=== PATIENT | female | born 1985 | race Caucasian/White ===

== ENCOUNTER 2016-11-14 00:21 | Inpatient (IN) | payer BC ==
[2016-11-14] VITALS (43 sets, daily range): BP systolic 86–186; BP diastolic 50–110
[~2016-11-14] VITALS: Ht 162.6 cm; Wt 100.0 kg
[~2016-11-14 00:21] MED LIST: ENDOCET 5-3251 EACH PO; IBUPROFEN800 MG PO; PRENATAL VITAM1 EAC7 PO
[2016-11-14 01:59] LABS: BASOPHIL COUNT 0.1 K/uL (0-0.1); EOSINOPHIL (%) 1.5 % (0-5); EOSINOPHIL COUNT 0.2 K/uL (0-0.3); HEMATOCRIT 35.5 % (36.0-46.0); IMMATURE GRANULOCYTE (%) 1.1 % (0.0-0.7); IMMATURE GRANULOCYTE COUNT 0.2 K/uL; INSTRUMENT ABS NEUTROPHIL CT 8.3 K/uL; LYMPHOCYTE COUNT 3.7 K/uL (1.0-2.8); MCHC 33.5 G/DL (30.0-36.0); MCV 92.4 FL (83-99); MEAN PLAT.VOLUME 10.3 uM^3 (9.5-12.4); MONOCYTE (%) 6.5 % (3-12); MONOCYTE COUNT 0.9 K/uL (0-0.8); NEUTROPHIL (%) 62.4 % (45-76); NEUTROPHIL COUNT 8.3 K/uL (1.8-6.4); PLATELET COUNT 291 K/uL (156-360); RBC DIS.WIDTH-CV 14.5 % (11.8-14.6); RBC DIS.WIDTH-SD 48.7 % (39-53); RED BLOOD COUNT 3.84 M/uL (3.80-5.20); WHITE BLOOD COUNT 13.3 K/uL (4.1-10.2)
[2016-11-14] MEDS ORDERED: IBUPROFEN800 MG PO (16:19)
[2016-11-15 07:09] LABS: BASOPHIL COUNT 0.1 K/uL (0-0.1); EOSINOPHIL (%) 2.1 % (0-5); EOSINOPHIL COUNT 0.3 K/uL (0-0.3); HEMATOCRIT 32.7 % (36.0-46.0); IMMATURE GRANULOCYTE (%) 0.8 % (0.0-0.7); IMMATURE GRANULOCYTE COUNT 0.1 K/uL; INSTRUMENT ABS NEUTROPHIL CT 9.9 K/uL; LYMPHOCYTE COUNT 3.9 K/uL (1.0-2.8); MCH 31.2 PG (29.0-34.0); MCHC 33.3 G/DL (30.0-36.0); MCV 93.7 FL (83-99); MEAN PLAT.VOLUME 10.6 uM^3 (9.5-12.4); MONOCYTE (%) 6.6 % (3-12); NEUTROPHIL (%) 64.6 % (45-76); NEUTROPHIL COUNT 9.9 K/uL (1.8-6.4); PLATELET COUNT 249 K/uL (156-360); RBC DIS.WIDTH-CV 14.8 % (11.8-14.6); RBC DIS.WIDTH-SD 50.9 % (39-53); RED BLOOD COUNT 3.49 M/uL (3.80-5.20); WHITE BLOOD COUNT 15.4 K/uL (4.1-10.2)
[2016-11-15 07:53] VITALS: BP 116/78
[2016-11-15 14:50] VITALS: BP 126/65
[2016-11-15 23:42] VITALS: BP 132/74
== END 2016-11-16 12:27 | disposition home or self-care (01) | DRG 775 ==
LOC: LDRP-OP 00:21 → 2WEST 00:22 → LDRP-OP 14:48 → 2WEST 15:40 → LDRP-OP 12-16 14:15
PROVIDERS: Midwife; Obstetrics & Gynecology
PROC: 10907ZC Drainage of Amniotic Fluid, Therapeutic from Products of Conception, Via Natural or Artificial Opening (ICD-10-PCS; principal; 2016-11-14)
PROC: 10E0XZZ Delivery of Products of Conception, External Approach (ICD-10-PCS; principal; 2016-11-14)
PROC: 3E0S3CZ (ICD-10-PCS; principal; 2016-11-14)
PROC: 00HU33Z Insertion of Infusion Device into Spinal Canal, Percutaneous Approach (ICD-10-PCS; principal; 2016-11-14)
DX: O99.824 Streptococcus B carrier state complicating childbirth (principal); D50.9 Iron deficiency anemia, unspecified; O70.0 First degree perineal laceration during delivery; O99.214 Obesity complicating childbirth; O99.02 Anemia complicating childbirth; Z3A.39 39 weeks gestation of pregnancy; Z37.0 Single live birth; O69.1XX0 Labor and delivery complicated by cord around neck, with compression, not applicable or unspecified
CPT/HCPCS: 85025; C1755; J2540; J3010; J7120